=== PATIENT | female | born 1980 ===

== ENCOUNTER 2020-07-22 09:57 | Outpatient (CLI) | payer OTHER, SELFPAY ==
--- NOTE | ~2020-07-22 | MMUS_ITS ---
EXAMINATION: MM diagnostic michael BI w osiel, US breast LT limited HISTORY: Palpable lump of the upper inner left breast TECHNIQUE: Craniocaudal, mediolateral, and mediolateral oblique 3-D tomosynthesis images of the mayur ts were performed and synthetic 2-D images were generated. CAD analysis was submitted and interpreted . High resolution limited left breast ultrasound was performed. COMPARISON: No prior mammogram is currently available for comparison at this institution. BREAST PARENCHYMAL COMPOSITION: The breasts are extremely dense, which lowers the sensitivity of mamm ography. FINDINGS: MAMMOGRAPHIC FINDINGS: Scattered benign-appearing calcifications are present. There are multiple obscured low density masses scattered throughout both breasts. No specific mammographic correlate is identified for the reported palpable abnormality of the left breast. No suspicious architectural distortion is identified. ULTRASOUND: There is an 8 mm round, circumscribed, complex cystic and solid mass at the 10:00 location 3 cm from the nipple corresponding to the palpable abnormality of concern. There is posterior acoustic enhancem ent with no internal vascularity. The hypoechoic component is at the dependent portion of the mass, p ossibly reflecting debris. IMPRESSION: 1. Probably benign left breast mass. 2. Recommend 6 month follow-up left diagnostic mammogram and ultrasound. BI-RADS category 3, probably benign findings. Reviewed, dictated and finalized at location A. SCIENCE TECHNICAL OFFICER IMPRESSION: 1. Probably benign left breast mass. 2. Recommend 6 month follow-up left diagnostic mammogram and ultrasound. BI-RADS category 3, probably benign findings.
== END 2020-07-22 09:58 ==
PROVIDERS: Visit Provider Obstetrics & Gynecology
DX: N63.21 Unspecified lump in the left breast, upper outer quadrant (principal); R92.8 Other abnormal and inconclusive findings on diagnostic imaging of breast
CPT/HCPCS: 76642; 77062; 77066; G0279